=== PATIENT | female | born 1950 | race Caucasian/White ===

== ENCOUNTER 2020-11-05 20:13 | Emergency (ER) | payer MEDICARE, BC ==
[~2020-11-05] VITALS: Ht 162.6 cm; Wt 68.2 kg
[2020-11-05 20:36] LABS: BASOPHILS % (AUTO) 0.3 % (0-1); EOSINOPHILS # (AUTO) 0.2 X10'3 (0-0.9); EOSINOPHILS % (AUTO) 1.8 % (0-6); HEMATOCRIT 38.5 % (35.0-45.0); HEMOGLOBIN 12.7 g/dl (12.0-16.0); LYMPHOCYTES # (AUTO) 2.7 X10'3 (1.1-4.8); LYMPHOCYTES % (AUTO) 28.4 % (21-51); MEAN CORPUSCULAR HEMOGLOBIN 31.1 PG (27.0-31.0); MEAN CORPUSCULAR VOLUME 94.1 FL (78-98); MEAN PLATELET VOLUME 9.3 FL (7.4-10.4); MONOCYTES # (AUTO) 0.6 X10'3 (0-0.9); MONOCYTES % (AUTO) 6.6 % (2-12); NEUTROPHILS % (AUTO) 62.9 % (42-75); PLATELET COUNT 233 X10'3 (140-440); RED BLOOD COUNT 4.09 X10'6 (4.20-5.60); RED CELL DISTRIBUTION WIDTH 14.4 % (11.5-14.5); WHITE BLOOD COUNT 9.5 X10'3 (4.5-11.0)
[2020-11-05 20:55] LABS: ALANINE AMINOTRANSFERASE 30 U/L (12-78); ALBUMIN 4.1 G/DL (3.4-5.0); ALBUMIN/GLOBULIN RATIO 1.2 (1.1-1.5); ALKALINE PHOSPHATASE 132 IU/L (46-116); ANION GAP 12 (8-16); ASPARTATE AMINO TRANSFERASE 25 U/L (10-37); BILIRUBIN,TOTAL 0.4 MG/DL (0.1-1.0); BLOOD UREA NITROGEN 14 MG/DL (7-18); BUN/CREATININE RATIO 15.2 (6.6-38.0); CALCIUM 9.5 MG/DL (8.5-10.1); CHLORIDE 97 MMOL/L (99-107); CREATININE 0.92 MG/DL (0.40-0.90); GLUCOSE 142 MG/DL (70-104); POTASSIUM 3.8 MMOL/L (3.5-5.1); SODIUM 138 MMOL/L (135-145); TOTAL CARBON DIOXIDE 28.7 MMOL/L (24-32); TOTAL PROTEIN 7.4 G/DL (6.4-8.2); eGFR 60 ML/MIN
--- NOTE | 2020-11-05 21:00 | NUR ---
PT CAME IN WITH HR IN THE 130'S AFTER PUTTING IN AN IV AND TALKING TO PT ABOUT MEDICAL HISTORY HR CAME DOWN TO 66-68 WHICH PT STATES IS HER NORMAL RANGE. PT TOOK ATENOLOL 25MG AT 0800 AND AT 1700.REPEAT EKG TAKEN, WILL CONTINUE TO MONITOR
[2020-11-05 22:18] VITALS: BP 109/61
== END 2020-11-05 22:20 | disposition home or self-care (01) ==
LOC: ER 20:14
DX: I47.1 Supraventricular tachycardia (principal); R42 Dizziness and giddiness
CPT/HCPCS: 36415; 71045; 80053; 83880; 84484; 85025; 93005; 99285

== ENCOUNTER 2022-12-23 15:42 | Outpatient (CLI) | payer MEDICARE | END 2022-12-23 23:59 | disposition home or self-care (01) | LOC: CARD DIAG 15:42 | PROVIDERS: ATTEND Internal Medicine Cardiovascular Disease | DX: I08.3 Combined rheumatic disorders of mitral, aortic and tricuspid valves (principal); R06.02 Shortness of breath | CPT/HCPCS: 93306 ==

== ENCOUNTER 2023-03-11 18:41 | Emergency (ER) | payer MEDICARE ==
[~2023-03-11] VITALS: Ht 157.5 cm; Wt 68.2 kg
[2023-03-11 18:51] VITALS: TEMP 98.1
[2023-03-11 18:59] LABS: BASOPHILS % (AUTO) 0.2 % (0-1); EOSINOPHILS # (AUTO) 0.1 X10'3 (0-0.9); EOSINOPHILS % (AUTO) 1.1 % (0-6); HEMATOCRIT 40.9 % (35.0-45.0); HEMOGLOBIN 13.3 g/dl (12.0-16.0); LYMPHOCYTES # (AUTO) 2.1 X10'3 (1.1-4.8); LYMPHOCYTES % (AUTO) 18.9 % (21-51); MEAN CORPUSCULAR HEMOGLOBIN 31.1 PG (27.0-31.0); MEAN CORPUSCULAR HGB CONC 32.5 g/dL (33.0-36.5); MEAN CORPUSCULAR VOLUME 95.7 FL (78-98); MONOCYTES # (AUTO) 0.7 X10'3 (0-0.9); MONOCYTES % (AUTO) 6.7 % (2-12); NEUTROPHILS # (AUTO) 8.1 X10'3 (1.8-7.7); NEUTROPHILS % (AUTO) 73.1 % (42-75); PLATELET COUNT 229 X10'3 (140-440); RED BLOOD COUNT 4.28 X10'6 (4.20-5.60); WHITE BLOOD COUNT 11.1 X10'3 (4.5-11.0)
[2023-03-11 19:15] LABS: ALANINE AMINOTRANSFERASE 34 U/L (12-78); ALBUMIN/GLOBULIN RATIO 1.1 (1.1-1.5); ALKALINE PHOSPHATASE 140 IU/L (46-116); ANION GAP 11 (8-16); ASPARTATE AMINO TRANSFERASE 25 U/L (10-37); BILIRUBIN,TOTAL 0.6 MG/DL (0.1-1.0); BLOOD UREA NITROGEN 13 MG/DL (7-18); BUN/CREATININE RATIO 15.7 (10.0-20.0); CHLORIDE 104 MMOL/L (99-107); CREATININE 0.83 MG/DL (0.40-0.90); GLUCOSE 137 MG/DL (70-104); POTASSIUM 3.9 MMOL/L (3.5-5.1); SODIUM 143 MMOL/L (135-145); TOTAL CARBON DIOXIDE 27.9 MMOL/L (24-32); TOTAL PROTEIN 7.5 G/DL (6.4-8.2); eGFR 68 ML/MIN
[2023-03-11] MEDS ORDERED: IBUP-864 PO (21:37)
[2023-03-11] MEDS ORDERED: ATOR40TA72 PO (21:37)
[2023-03-11] MEDS ORDERED: NITR0.4T48 (21:37)
[2023-03-11] MEDS ORDERED: CITA40TA17 PO (21:37)
[2023-03-11] MEDS ORDERED: HYDR12.55 PO (21:37)
[2023-03-11] MEDS ORDERED: ATEN25TA PO (21:37)
[2023-03-11] MEDS ORDERED: FURO20TA4 PO (21:37)
[2023-03-11] MEDS ORDERED: APIX5TAB3 PO (21:37)
[2023-03-11] MEDS ORDERED: TRAZ-256 PO (21:37)
[2023-03-11] MEDS ORDERED: POTA-197 PO (21:37)
[2023-03-11] MEDS ORDERED: ALBU90AE2 INH (21:37)
[2023-03-11 23:19] VITALS: BP 174/89; PULSE 65; RESP 16; O2SAT 94
== END 2023-03-11 23:20 | disposition home or self-care (01) ==
LOC: ER 18:42
DX: R06.02 Shortness of breath (principal); I10 Essential (primary) hypertension; J44.9 Chronic obstructive pulmonary disease, unspecified; F32.A Depression, unspecified; Z79.899 Other long term (current) drug therapy; Z79.1 Long term (current) use of non-steroidal anti-inflammatories (NSAID)
CPT/HCPCS: 36415; 71045; 80053; 83880; 84484; 85025; 93005; 99285

== ENCOUNTER 2024-05-13 01:01 | Emergency (ER) | payer MEDICARE ==
[~2024-05-13] VITALS: Ht 157.5 cm; Wt 66.2 kg
[~2024-05-13 01:01] MED LIST: ALBU90AE3 INH; APIX5TAB3 PO; ATEN25TA PO; ATOR40TA72 PO; CITA40TA17 PO; FURO20TA4 PO; HYDR12.55 PO; IBUP-864 PO; NITR0.4T48; POTA-197 PO; TRAZ-256 PO
[2024-05-13] MEDS ORDERED: AMOX-117 PO (03:37)
[2024-05-13] MEDS: amox tr/potassium clavulanate 875/125mg TAB PO STA (03:59)
[2024-05-13 04:00] VITALS: BP 126/68; PULSE 78; RESP 12; TEMP 97.8; O2SAT 100
== END 2024-05-13 04:09 | disposition home or self-care (01) ==
LOC: ER 01:02
DX: S51.811A Laceration without foreign body of right forearm, initial encounter (principal); I10 Essential (primary) hypertension; J44.9 Chronic obstructive pulmonary disease, unspecified; I48.91 Unspecified atrial fibrillation; Z79.899 Other long term (current) drug therapy; W54.0XXA Bitten by dog, initial encounter; Y93.89 Activity, other specified; Y92.89 Other specified places as the place of occurrence of the external cause; Y99.8 Other external cause status
CPT/HCPCS: 99283